=== PATIENT | female | born 1985 | race Caucasian/White ===

== ENCOUNTER 2022-09-15 15:18 | Emergency (ER) | payer OTHER, SELFPAY ==
[2022-09-15] VITALS (14 sets, daily range): BP systolic 122–155; BP diastolic 79–97; PULSE 73–93; RESP 24; TEMP 37.2; O2SAT 92–100; BMI 28.3
[2022-09-15 16:47] LABS: Appearance Urine Clear (Clear); Bilirubin Urine Negative (Negative); Blood Urine Negative (Negative); Color Urine Yellow (Yellow); Glucose Urine Negative (Negative); Ketones Urine Negative (Negative); Leukocyte Esterase Urine Negative (Negative); Nitrite Urine Negative (Negative); Protein Urine Negative (Negative); Urobilinogen Urine 0.2 (0.2-1.0); pH Urine 8.5 (5.0-8.5)
--- NOTE | 2022-09-15 16:48 | ED.ABDPAIN ---
HPI - Abdominal Pain General Time Seen by Provider: 16:48 Date Seen: 09/15/22 Chief Complaint: Abdominal Pain Stated Complaint: Abdominal pain Time Seen by Provider: 09/15/22 16:57 Source: patient, RN notes reviewed and old records reviewed Mode of arrival: ambulatory Limitations: no limitations History of Present Illness HPI narrative: Marlee is a very pleasant 37-year-old female with a history of bowel obstruction, unknown etiology with no history of abdominal surgeries who comes to the emergency room complaining of abdominal pain. Patient notes that this started at approximately 1300 hours and it was in her upper abdomen. It radiated into her back and down into the lower abdomen. She thought at 1st she must be hungry a she dot eaten in some time. She tried to eat but the eating actually made the pain worse. She does not feel like she is bloated. She was passing gas earlier today. She notes that since 1300 hours she has had increasing discomfort. She still retains her gallbladder. She denies nausea or or vomiting. She did have some diarrhea earlier this morning. She notes no fever or chills. Her pain is rated a 9/10 at this time. Patient noted that she had a small bowel obstruction in June of 2020. She was hospitalized at [facility] and did require fluids and NG tube. As she has not had previous abdominal surgeries they thought perhaps this was related to random scarring according to patient. Patient has not had any recent dietary changes. She has no fever or chills. She is otherwise healthy. Denies any possibility of . Denies dysuria. Related Data Home Medications Medication Instructions Recorded Confirmed buspirone 10 mg tablet 20 mg PO BID 09/15/22 09/15/22 dextroamphetamine-amphetamine ER 1 cap PO DAILY 09/15/22 09/15/22 20 mg 24hr capsule,extend release (Adderall XR) dextroamphetamine-amphetamine ER 1 cap PO DAILY 09/15/22 09/15/22 30 mg 24hr capsule,extend release (Adderall XR) escitalopram oxalate 20 mg tablet 30 mg PO DAILY 09/15/22 09/15/22 levothyroxine 75 mcg tablet 75 mcg PO DAILY 09/15/22 09/15/22 trazodone 100 mg tablet 100 mg PO QPM 09/15/22 09/15/22 Allergies Allergy/AdvReac Type Severity Reaction Status Date / Time fluconazole [From Diflucan] Allergy Severe rash Verified 09/15/22 15:23 Sulfa (Sulfonamide Allergy Severe Rash Verified 09/15/22 15:23 Antibiotics) Review of Systems Status of ROS Reports: 10 or more systems reviewed and unremarkable except as noted in History and below Const Denies: fever or chills ENMT Denies: neck pain, throat swelling or hoarseness Cardio Denies: chest pain, swelling of feet/ankles, lightheadedness or shortness of breath with exertion Resp Denies: shortness of breath or cough GI Reports: abdominal pain and diarrhea; Denies: nausea, vomiting or blood in stool Denies: painful urination or urinary frequency Musculo Reports: back pain; Denies: neck pain or extremity swelling Integ/Breast Denies: rash Allergy/Immuno Denies: throat swelling PFSH PFSH Social History Smoking Status: Never smoker Do you use any of these nicotine containing products: None Second hand tobacco smoke exposure: No How often do you have a drink containing alcohol: never AUDIT-C Alcohol total score: 0 Non-prescribed substance use: denies use service: No Exam Narrative: Exam Narrative: Patient is very pleasant. Alert and oriented. Face is somewhat flushed. Heart with regular rate and rhythm and lungs are clear to auscultation. Abdomen shows tenderness in the upper abdomen. No bloating. Palpation in the lower aspect the abdomen does increase pressure superiorly. No masses noted. Lower extremities without edema. Const: Vital Signs, click to edit/add: Vital Signs - 24 hr 09/15/22 15:25 09/15/22 16:35 09/15/22 16:36 Temperature 98.9 F Pulse Rate 81 81 Pulse Rate [Pulse Oximeter] 93 Respiratory Rate 24 Blood Pressure 129/89 Blood Pressure [Ri ght Upper Arm] 155/97 H Pulse Oximetry 96 97 98 Oxygen Delivery Me thod Room Air 09/15/22 16:40 09/15/22 17:00 09/15/22 17:01 Temperature Pulse Rate 76 81 79 Pulse Rate [Pulse Oximeter] Respiratory Rate Blood Pressure 132/89 Blood Pressure [Ri ght Upper Arm] Pulse Oximetry 100 98 99 Oxygen Delivery Me thod 09/15/22 17:20 09/15/22 17:31 09/15/22 17:40 Temperature Pulse Rate 89 84 74 Pulse Rate [Pulse Oximeter] Respiratory Rate Blood Pressure 122/95 H Blood Pressure [Ri ght Upper Arm] Pulse Oximetry 92 97 100 Oxygen Delivery Me thod 09/15/22 18:00 09/15/22 18:01 09/15/22 18:20 Temperature Pulse Rate 75 76 78 Pulse Rate [Pulse Oximeter] Respiratory Rate Blood Pressure 128/79 Blood Pressure [Ri ght Upper Arm] Pulse Oximetry 99 99 98 Oxygen Delivery Me thod 09/15/22 18:31 09/15/22 18:41 Temperature Pulse Rate 73 75 Pulse Rate [Pulse Oximeter] Respiratory Rate Blood Pressure 136/94 H Blood Pressure [Ri ght Upper Arm] Pulse Oximetry 99 99 Oxygen Delivery Me thod Documenting provider has reviewed patient's vital signs: yes Course Course Hospital Course: Differential diagnosis includes but is not limited to small-bowel obstruction, biliary colic, cholecystitis, colitis, gastritis, gastroenteritis, abdominal colic. At this time patient is nontoxic in appearance. Will place an IV and give pain medicine Toradol 15 mg, and 1 L of normal saline. Will check labs to include CBC, comprehensive panel, bilirubin, lactate, CRP and urinalysis. Flat plate and upright will also be ordered. Reevaluation(s) Reevaluation #1: Patient feeling improved with fluids and meds. Vital Signs Vital signs: Initial Vital Signs Temperature 98.9 F 09/15/22 15:25 Temperature Source Temporal Artery Scan 09/15/22 15:25 Pulse Rate 93 09/15/22 15:25 Pulse Rhythm Regular 09/15/22 15:25 Pulse Strength 3+ Normal 09/15/22 15:25 Respiratory Rate 24 09/15/22 15:25 Blood Pressure 155/97 H 09/15/22 15:25 Blood Pressure Mean 116 H 09/15/22 15:25 Blood Pressure Position Sitting 09/15/22 15:25 Pulse Oximetry 96 09/15/22 15:25 Oxygen Delivery Method Room Air 09/15/22 15:25 Vital Signs Temperature 98.9 F 09/15/22 15:25 Pulse Rate 93 09/15/22 15:25 Respiratory Rate 24 09/15/22 15:25 Blood Pressure 155/97 H 09/15/22 15:25 Pulse Oximetry 96 05/05/23 15:25 Oxygen Delivery Method Room Air 09/15/22 15:25 Temperature 98.9 F 09/15/22 15:25 Pulse Rate 75 09/15/22 18:41 Respiratory Rate 24 09/15/22 15:25 Blood Pressure 136/94 H 09/15/22 18:31 Pulse Oximetry 99 09/15/22 18:41 Oxygen Delivery Method Room Air 09/15/22 15:25 MDM - Abdominal Pain MDM Narrative Medical decision making narrative: 1. Abdominal pain-at this time laboratory values are reassuring and flat plate and upright does not show an obstructive pattern. Patient is feeling much better after Toradol and IV fluids. This may be a partial small-bowel obstruction or biliary colic but at this time I would not put her through the CT scanner as she is feeling so much better. She feels comfortable with this plan. I would like her to go on fluids and soft food diet for the next 48 hours. She has no previous history of abdominal surgeries and yet had a small-bowel obstruction in 2020. She may use ibuprofen as needed for discomfort at home. Should she have increasing pain, vomiting, the onset of fever would ask her to return to the ER for potential CT of the abdomen. She feels comfortable with this plan. Lactate, CRP, white count, LFTs all within normal limits at this time. Urinalysis also reassuring. Given the normal labs, would not want to expose patient to radiation. We did discuss risks benefits and I feel that the risks outweigh benefits at this time. However, should her situation change that decision made changes well. 2. Disposition-home at this time. Return for worsening symptoms. Soft foods and fluids over the next 48 hours. Medical Records Attestation: I reviewed the patient's medical records. Lab Data Attestation: I reviewed the patient's lab results. Labs: Lab Results 09/15/22 09/15/22 09/15/22 Range/Units 16:39 17:00 17:37 WBC 8.41 (4.50-11.00) K/uL RBC 4.53 (4.00-5.20) m/uL Hgb 13.4 (12.0-16.0) gm/dL Hct 40.8 (33.0-51.0) % MCV 90 (80-100) fL MCH 30 (26-34) pg MCHC 33 (32-36) gm/dL RDW Coeff of [place] 12.3 (11.5-15.5) % Plt Count 389 (140-440) K/uL Neut % (Auto) 76.2 H (42.0-72.0) % Lymph % (Auto) 16.3 L (20-44) % [place] % (Auto) 6.8 (0.0-11.0) % Eos % (Auto) 0.4 (0.0-7.0) % Baso % (Auto) 0.2 (0.0-3.0) % Neut # (Auto) 6.40 (1.7-7.0) K/uL Lymph # (Auto) 1.40 (0.90-2.90) K/uL [place] # (Auto) 0.60 (0.00-0.90) K/UL Eos # (Auto) 0.03 (0.00-0.50) K/uL Baso # (Auto) 0.02 (0.00-0.30) K/uL Sodium 139 (135-149) mmol/L Potassium 3.7 (3.6-5.1) mmol/L Chloride 106 (96-114) mmol/L Carbon Dioxide 23 (20-32) mmol/L BUN 10 (5-24) mg/dL Creatinine 0.6 (0.5-1.5) mg/dL Estimated Creat Clear 109.78 Estimated GFR 118 ml/min Glucose 101 (60-115) mg/dL Lactate 0.4 L (0.5-1.9) mmol/L Calcium 9.4 (8.4-10.6) mg/dL Total Bilirubin 0.3 (0.1-1.5) mg/dL Direct Bilirubin 0.0 (0.0-0.5) mg/dL AST 25 (12-35) U/L ALT 19 (4-35) U/L Alkaline Phosphatase 60 (40-150) U/L Total Protein 8.0 (6.0-8.3) g/dL Albumin 5.0 (3.3-5.0) g/dL Lipase 65 (23-300) U/L Urine Color Yellow (Yellow) Urine Appearance Clear (Clear) Urine pH 8.5 (5.0-8.5) Ur Specific [place] 1.020 (1.000-1.030) Urine Protein Negative (Negative) Urine Glucose (UA) Negative (Negative) Urine Ketones Negative (Negative) Urine Blood Negative (Negative) Urine Nitrite Negative (Negative) Urine Bilirubin Negative (Negative) Urine Urobilinogen 0.2 (0.2-1.0) Ur Leukocyte Esterase Negative (Negative) Urine RBC 0-2 (0-2) Urine WBC 0-2 (0-5) Ur Squamous Epith Cells Few (None-Few) Urine Bacteria None (None) Imaging Data Flat plate and upright x-ray: Attestation: I have reviewed the pertinent imaging results. Radiologist's impression: Bowel: Bowel pattern is normal. Moderate amount of stool material in the colon, particularly in the ascending colon to the hepatic flexure. Soft tissues: No sign of free air.? No sign of soft tissue mass.? No suspicious calcifications.? Bones: Unremarkable for age.? IMPRESSION: 1. Nonobstructive bowel gas pattern. 2. No evidence for pneumoperitoneum. Discharge Plan Discharge Clinical Impression: Abdominal pain Qualifiers: Abdominal location: upper abdomen, unspecified Qualified Code(s): R10.10 - Upper abdominal pain, unspecified Patient Disposition: Home, Self-Care Condition: Improved Additional Instructions: Recommend soft food and liquids for the next 48 hours. Ibuprofen as needed for pain. Return to the emergency room for worsening symptoms and as needed. Prescriptions: No Action buspirone 10 mg tablet 20 mg PO BID levothyroxine 75 mcg tablet 75 mcg PO DAILY dextroamphetamine-amphetamine [Adderall XR] 20 mg capsule,extended release 24hr 1 cap PO DAILY Hold Instructions: Order Change trazodone 100 mg tablet 100 mg PO QPM dextroamphetamine-amphetamine [Adderall XR] 30 mg capsule,extended release 24hr 1 cap PO DAILY escitalopram oxalate 20 mg tablet 30 mg PO DAILY Follow Up/Referrals: Provider,Not a Local [Primary Care Provider] - Stand Alone Forms: [employer] Live Info Instructions
--- NOTE | 2022-09-15 17:00 | CRLHL7_ITS ---
For Patients: As a result of the Century Cures Act, medical imaging exams and procedure reports are released immediately into your electronic medical record. You may view this report before your referring provider. If you have questions, please contact your health care provider. INDICATION: UPPER ABD PAIN, HX SBO INDICATION: Upper abdominal pain. TECHNIQUE: Abdomen 2 view. COMPARISON: None FINDINGS: Bowel: Bowel pattern is normal. Moderate amount of stool material in the colon, particularly in the ascending colon to the hepatic flexure. Soft tissues: No sign of free air. No sign of soft tissue mass. No suspicious calcifications. Bones: Unremarkable for age. IMPRESSION: 1. Nonobstructive bowel gas pattern. 2. No evidence for pneumoperitoneum. Dictated by Christiano Luis MD @ 09/15/2022 6:03:11 PM Dictated by: Christiano Luis MD @ 09/15/2022 18:03:16 (Electronically Signed)
[2022-09-15 17:07] LABS: RBC Urine 0-2 (0-2); Squamous Epithelial Cell Urine Few (None-Few); WBC Urine 0-2 (0-5)
[2022-09-15] MEDS: 0.9 % SODIUM CHLORIDE 1000 ml 1,000 ML IV (17:24)
[2022-09-15 17:34] LABS: Basophils Absolute Auto 0.02 K/uL (0.00-0.30); Basophils Percent Auto 0.2 % (0.0-3.0); Eosinophils Absolute Auto 0.03 K/uL (0.00-0.50); Eosinophils Percent Auto 0.4 % (0.0-7.0); Hematocrit 40.8 % (33.0-51.0); Hemoglobin* 13.4 gm/dL (12.0-16.0); Immature Granulocytes Abs Auto 0.01 K/uL (0.00-0.30); Immature Granulocytes Pct Auto 0.1 %; Lymphocytes Percent Auto 16.3 % (20-44); Mean Corpuscular HGB Conc 33 gm/dL (32-36); Mean Corpuscular Hemoglobin 30 pg (26-34); Mean Corpuscular Volume 90 fL (80-100); Monocytes Percent Auto 6.8 % (0.0-11.0); Neutrophils Percent Auto 76.2 % (42.0-72.0); Platelet Count* 389 K/uL (140-440); RDW Coefficient of Variation % 12.3 % (11.5-15.5); Red Blood Count 4.53 m/uL (4.00-5.20); White Blood Count* 8.41 K/uL (4.50-11.00)
[2022-09-15] MEDS: KETOROLAC 15 MG/ML inj IVP (17:44)
[2022-09-15 17:46] LABS: Lactate* 0.4 mmol/L (0.5-1.9)
[2022-09-15 18:03] LABS: Slide Review Reflex No
[2022-09-15 18:19] LABS: Chloride* 106 mmol/L (96-114)
[2022-09-15 18:20] LABS: Potassium* 3.7 mmol/L (3.6-5.1); Sodium* 139 mmol/L (135-149)
[2022-09-15 18:22] LABS: Alkaline Phosphatase* 60 U/L (40-150); Aspartate Amino Transferase* 25 U/L (12-35); Bilirubin Total* 0.3 mg/dL (0.1-1.5); Blood Urea Nitrogen* 10 mg/dL (5-24); Carbon Dioxide* 23 mmol/L (20-32); Creatinine* 0.6 mg/dL (0.5-1.5); Est. Creatinine Clearance* 109.78; Estimated Glomerular Filt Rate 118 ml/min; Glucose* 101 mg/dL (60-115); Lipase* 65 U/L (23-300)
[2022-09-15 18:23] LABS: Alanine Aminotransferase* 19 U/L (4-35); Calcium* 9.4 mg/dL (8.4-10.6)
== END 2022-09-15 19:01 | disposition home or self-care (01) ==
PROVIDERS: Emergency Provider Family Medicine
DX: R10.10 Upper abdominal pain, unspecified (principal)
CPT/HCPCS: 36415; 74019; 80053; 81001; 82248; 83605; 83690; 85025; 96374; 99283; 99284; J1885; J7030